=== PATIENT | male | born 1970 | race Caucasian/White ===

== ENCOUNTER 2019-07-27 20:19 | Emergency (ER) | payer OTHER ==
--- NOTE | 2019-07-27 20:41 | ER Document Report ---
ED Medical Screen (RME) - General Chief Complaint: Foot Injury Stated Complaint: LEFT FOOT INJURY Time Seen by Provider: 07/27/19 20:33 Primary Care Provider: KRISTY KNOTT MD [Primary Care Provider] - Follow up as needed - [facility] Notes: 07/27/19 20:39 Patient is a 49-year-old male who presents complaining of left plantar heel pain/midfoot pain status post injury prior to arrival. Patient states that he immediately had numbness to the dorsal toes and somewhat to the plantar surface of his toes thereafter which continues. Patient states that he does have pain with ambulation and weightbearing. Patient states that he was trying to push off while playing volleyball and felt a strong "pop." I have treated and performed a rapid initial assessment of this patient. A comprehensive ED assessment and evaluation of the patient, analysis of test results and completion of medical decision making process will be conducted by additional ED providers. PHYSICAL EXAMINATION: GENERAL: Well-appearing, well-nourished and in no acute distress. A&Ox4. Answers questions appropriately. Left foot: There is no obvious swelling, ecchymosis, deformity, erythema, or warmth. There is tenderness to his mid plantar foot into the anterior plantar heel area. He does have decreased incision to his toes to palpation. Pulses 2+ otherwise. - Related Data Allergies/Adverse Reactions: codeine [Codeine] Adverse Reaction (Intermediate, Verified 08/12/12 15:36) itching Past Medical History GI Medical History: Reports: Hx Gastroesophageal Reflux Disease Past Surgical History: Reports: Hx Oral Surgery, Hx Tonsillectomy - Immunizations Immunizations up to date: Yes Hx Diphtheria, Pertussis, Tetanus Vaccination: Yes Physical Exam - Vital signs Vitals: Temp Pulse Resp BP Pulse Ox 99.1 F 99 16 153/98 H 100 07/27/19 20:24 07/27/19 20:24 07/27/19 20:24 07/27/19 20:24 07/27/19 20:24 Course - Vital Signs Vital signs: Temp Pulse Resp BP Pulse Ox 99.1 F 99 16 153/98 H 100 07/27/19 20:24 07/27/19 20:24 07/27/19 20:24 07/27/19 20:24 07/27/19 20:24 Doctor's Discharge - Discharge Referrals: KRISTY KNOTT MD [Primary Care Provider] - Follow up as needed
--- NOTE | 2019-07-27 22:15 | RADIOLOGY REPORT (SQ) ---
EXAM DESCRIPTION: XR FOOT 3 OR MORE VIEWS COMPLETED DATE/TME: 07/27/2019 20:39 CLINICAL HISTORY: 49 years, Male, left plantar heel pain s/p injury COMPARISON: None. TECHNIQUE: AP, oblique and lateral radiographs of the left foot were obtained. FINDINGS/IMPRESSION: There may be an occult nondisplaced hairline fracture of the distal portion of a small inferior calcaneal enthesophyte. No subluxations. Hallux valgus deformity. Prominent os subfibulare.
[2019-07-27] MEDS ORDERED: IBUPROFEN 800 MG TABLET PO ONE (22:32)
--- NOTE | 2019-07-27 22:36 | ER Document Report ---
HPI - HPI Time Seen by Provider: 07/27/19 20:33 Pain Level: Denies Context: Patient is a 49-year-old male that comes emergency department for chief complaint of left heel and bottom of the foot at the midfoot pain with some slight swelling. He states that he was playing volleyball, he was trying to push off and he felt a pop, he states after this he started feeling swelling and pain in the foot. This happened this evening. He denies any other injuries or any other complaints. He is not on a blood thinner. He can ambulate on the foot but this is painful. - CONSTITUTIONAL Constitutional: DENIES: Fever, Chills - EENT EENT: DENIES: Sore Throat, Ear Pain, Eye problems - NEURO Neurology: DENIES: Headache, Weakness, Vision blurred, Dizzinesss / Vertigo - CARDIOVASCULAR Cardiovascular: DENIES: Chest pain - RESPIRATORY Respiratory: DENIES: Trouble Breathing, Coughing - GASTROINTESTINAL Gastrointestinal: DENIES: Abdominal Pain, Black / Bloody Stools - URINARY Urinary: DENIES: Dysuria, Urgency, Frequency - REPRODUCTIVE Reproductive: DENIES: :, Postmenopausal, Abnormal bleeding / discharge - MUSCULOSKELETAL Musculoskeletal: DENIES: Extremity pain - DERM Skin Color: Normal, [place] Past Medical History - General Information source: Patient - Social History Smoking Status: Former Smoker Chew tobacco use (# tins/day): No Frequency of alcohol use: Occasional Drug Abuse: None Lives with: Family Family History: Reviewed & Not Pertinent Patient has suicidal ideation: No Patient has homicidal ideation: No GI Medical History: Reports: Hx Gastroesophageal Reflux Disease Past Surgical History: Reports: Hx Oral Surgery, Hx Tonsillectomy - Immunizations Immunizations up to date: Yes Hx Diphtheria, Pertussis, Tetanus Vaccination: Yes Vertical Provider Document - CONSTITUTIONAL General Appearance: WD/WN, No Apparent Distress - INFECTION CONTROL TRAVEL OUTSIDE OF THE [place] IN LAST 30 DAYS: No - HEENT HEENT: Atraumatic, Normocephalic - NECK Neck: Normal Inspection - RESPIRATORY Respiratory: Breath Sounds Normal, No Respiratory Distress - CARDIOVASCULAR Cardiovascular: Regular Rate, Regular Rhythm - GI/ABDOMEN Gastrointestinal: Abdomen Soft, Abdomen Non-Tender - BACK Back: Normal Inspection - MUSCULOSKELETAL/EXTREMETIES Musculoskeletal/Extremeties: MAEW, FROM, Tender - There is some tenderness at the base of the left heel at the calcaneus area and across the plantar fascia. There appears to be some mild subtle soft tissue swelling but there is no severe swelling, erythema, ecchymosis. Normal capillary refill and sensation. Normal range of motion of the ankle, normal foot exam otherwise. - NEURO Level of Consciousness: Awake, Alert, Appropriate Motor/Sensory: No Motor Deficit, No Sensory Deficit - DERM Integumentary: Warm, Dry, No Rash Course - Re-evaluation Re-evalutation: I did review x-ray and radiology report, this does appear to show a tiny occult fracture at the calcaneus at the insertion of the plantar tendon. I suspect a tiny avulsion fracture. This is consistent with patient's evaluation. I discussed this with the patient. He was provided with crutches, Segundo wrap, discussed care of this, follow-up, and return precautions. Patient provided with a report on request. Patient states understanding and agreement. - Vital Signs Vital signs: Temp Pulse Resp BP Pulse Ox 99.1 F 99 16 153/98 H 100 07/27/19 20:24 07/27/19 20:24 07/27/19 20:24 07/27/19 20:24 07/27/19 20:24 Procedures - Immobilization Left foot Pre-Proc Neuro Vasc Exam: Normal Immobilizer type: Segundo wrap Performed by: PCT Post-Proc Neuro Vasc Exam: Normal Alignment checked and good: Yes Discharge - Discharge Clinical Impression: Left foot pain, Avulsion fracture of bone Condition: Stable Disposition: HOME, SELF-CARE Additional Instructions: There appears to be a tiny avulsion fracture near the attachment of your plantar ligament. This is treated like a bad sprain. I recommend ice to the area 3-4 times a day for 10 to 15 minutes, elevation as much as possible, anti- inflammatory as prescribed. The Segundo wrap can help. I recommend using the crutches for the first 2 to 3 days or so. After swelling and pain resolve resume normal activity. Follow-up with primary care for additional management. Return for any concerning symptoms including severe worsening swelling or pain. Prescriptions: Naproxen 500 mg PO BID PRN #20 tablet PRN Reason:
[2019-07-27 22:44] VITALS: BP 154/91
== END 2019-07-27 23:01 | disposition home or self-care (01) ==
LOC: ER 20:19
DX: S92.002A Unspecified fracture of left calcaneus, initial encounter for closed fracture (principal); M79.672 Pain in left foot; M79.89 Other specified soft tissue disorders; X58.XXXA Exposure to other specified factors, initial encounter; Y93.68 Activity, volleyball (beach) (court); Z87.891 Personal history of nicotine dependence
CPT/HCPCS: 99283